=== PATIENT | female | born 1975 | race Two or more races ===

== ENCOUNTER 2017-02-27 14:19 | Emergency (ER) | payer MEDICAID ==
[~2017-02-27] VITALS: Ht 157.5 cm; Wt 108.9 kg
[2017-02-27 15:10] VITALS: BP 126/89
== END 2017-02-27 16:34 | disposition home or self-care (01) ==
LOC: ER 14:38
DX: K14.0 Glossitis (principal); I10 Essential (primary) hypertension

== ENCOUNTER 2019-09-22 23:42 | Emergency (ER) | payer MEDICAID, OTHER ==
[~2019-09-22] VITALS: Ht 167.6 cm; Wt 45.4 kg
[2019-09-23 02:20] LABS: Basophils # (auto) 0.1 10 ^3/uL (0-0.2); Basophils % (auto) 0.6 % (0.0-2.0); Eosinophils # (auto) 0.2 10 ^3/uL (0-0.8); Eosinophils % (auto) 2.1 % (0.0-7.0); Hemoglobin 9.5 g/dL (12.2-16.2); Lymphocytes # (auto) 1.9 10 ^3/uL (0.4-5.4); Mean Corpuscular Hemoglobin 19.8 pg (28.0-32.0); Mean Corpuscular Hgb Conc. 30.6 g/dL (32.0-36.0); Mean Corpuscular Volume 64.5 fL (80.0-100.0); Monocytes # (auto) 0.6 10 ^3/uL (0-1.3); Monocytes % (auto) 6.6 % (0.0-12.0); Neutrophils # (auto) 6.2 10 ^3/uL (1.6-8.6); Neutrophils % (auto) 69.7 % (37.0-80.0); Platelet Count (auto) 330 10^3/uL (140-450); White Blood Cell 8.9 10^3/uL (4.4-10.8)
[2019-09-23 02:21] LABS: Red Cell Distribution Width 22.3 % (11.8-14.3)
[2019-09-23 02:41] LABS: Anion Gap 6 (5-15); Blood Urea Nitrogen 20 mg/dL (7-18); Calcium 8.1 mg/dL (8.5-10.1); Carbon Dioxide 24 mmol/L (21-32); Chloride 110 mmol/L (98-107); Glucose 110 mg/dL (74-106); Magnesium 2.2 mg/dL (1.6-2.6); Potassium 3.9 mmol/L (3.5-5.1); Sodium 140 mmol/L (136-145)
[2019-09-23 02:43] LABS: Alanine Aminotransferase 18 U/L (13-56); Aspartate Aminotransferase 13 U/L (15-37); BUN/Creatinine Ratio 24.1; GFR African American 96 mL/min; GFR Non-African American 79 mL/min
[2019-09-23 02:47] LABS: Alkaline Phosphatase 62 U/L (45-117)
[2019-09-23 02:48] LABS: Bilirubin, Total 0.2 mg/dL (0.2-1.0)
[2019-09-23 05:09] VITALS: BP 140/88
== END 2019-09-23 05:50 | disposition home or self-care (01) ==
LOC: EDBD 23:42 → ER 23:44
DX: R07.89 Other chest pain (principal); D50.9 Iron deficiency anemia, unspecified
CPT/HCPCS: 36415; 71045; 80053; 83735; 83880; 84484; 85025; 93005

== ENCOUNTER 2020-03-22 00:09 | Emergency (ER) | payer OTHER ==
[~2020-03-22] VITALS: Ht 160 cm; Wt 108.9 kg
[2020-03-22 00:27] VITALS: BP 150/85
[2020-03-22] MEDS ORDERED: PANTOPRAZOLE 40 MG TAB PO ONE (00:30)
[2020-03-22] MEDS ORDERED: LORazepam 0.5 MG TAB PO ONE (00:30)
[2020-03-22 01:03] LABS: Eosinophils # (auto) 0.2 10 ^3/uL (0-0.8); Monocytes # (auto) 0.4 10 ^3/uL (0-1.3); Neutrophils # (auto) 3.8 10 ^3/uL (1.6-8.6); Platelet Count (auto) 404 10^3/uL (140-450)
[2020-03-22 01:05] LABS: Basophils # (auto) 0.1 10 ^3/uL (0-0.2); Basophils % (auto) 1.4 % (0.0-2.0); Eosinophils % (auto) 3.1 % (0.0-7.0); Hematocrit 28.5 % (36.0-46.0); Hemoglobin 8.6 g/dL (12.2-16.2); Lymphocytes # (auto) 1.4 10 ^3/uL (0.4-5.4); Lymphocytes % (auto) 23.8 % (10.0-50.0); Mean Corpuscular Hemoglobin 18.7 pg (28.0-32.0); Mean Corpuscular Hgb Conc. 30.3 g/dL (32.0-36.0); Mean Corpuscular Volume 61.6 fL (80.0-100.0); Monocytes % (auto) 6.5 % (0.0-12.0); Neutrophils % (auto) 65.2 % (37.0-80.0); Red Blood Cells 4.63 10^6/uL (4.0-5.20); White Blood Cell 5.8 10^3/uL (4.4-10.8)
[2020-03-22 01:20] LABS: Albumin 3.6 g/dL (3.4-5.0); Anion Gap 6 (5-15); Blood Urea Nitrogen 17 mg/dL (7-18); Calcium 8.8 mg/dL (8.5-10.1); Carbon Dioxide 26 mmol/L (21-32); Chloride 107 mmol/L (98-107); Glucose 101 mg/dL (74-106); Potassium 3.5 mmol/L (3.5-5.1); Sodium 139 mmol/L (136-145)
[2020-03-22 01:21] LABS: INR 1.06 (0.9-1.15); Partial Thromboplastin Time 25.8 sec (23.0-31.2)
[2020-03-22 01:24] LABS: Alanine Aminotransferase 20 U/L (13-56); Alkaline Phosphatase 64 U/L (45-117); Aspartate Aminotransferase 17 U/L (15-37); BUN/Creatinine Ratio 18.9; Bilirubin, Total 0.6 mg/dL (0.2-1.0); GFR African American 87 mL/min; GFR Non-African American 72 mL/min; Total Protein 7.7 g/dL (6.4-8.2)
[2020-03-22 02:39] LABS: Salicylate < 1.7 mg/dL (2.8-20.0)
[2020-03-22 02:42] LABS: Acetaminophen < 2.0 ug/mL (10-30)
== END 2020-03-22 03:03 | disposition home or self-care (01) ==
LOC: ER 00:09
DX: F41.9 Anxiety disorder, unspecified (principal); K29.70 Gastritis, unspecified, without bleeding; D64.9 Anemia, unspecified; R07.89 Other chest pain; Z20.822 Contact with and (suspected) exposure to COVID-19
CPT/HCPCS: 36415; 71045; 80053; 80329; 83735; 83880; 84443; 84484; 85025; 85610; 85730; 87426; 93005

== ENCOUNTER 2020-03-29 22:20 | Emergency (ER) | payer OTHER ==
[~2020-03-29] VITALS: Ht 160 cm; Wt 90.7 kg
[2020-03-30 01:06] LABS: Albumin 3.6 g/dL (3.4-5.0); Anion Gap 6 (5-15); Basophils # (auto) 0.1 10 ^3/uL (0-0.2); Calcium 8.1 mg/dL (8.5-10.1); Carbon Dioxide 26 mmol/L (21-32); Chloride 106 mmol/L (98-107); Eosinophils # (auto) 0.3 10 ^3/uL (0-0.8); Eosinophils % (auto) 3.6 % (0.0-7.0); Glucose 95 mg/dL (74-106); Lymphocytes # (auto) 1.9 10 ^3/uL (0.4-5.4); Monocytes # (auto) 0.5 10 ^3/uL (0-1.3); Neutrophils # (auto) 4.5 10 ^3/uL (1.6-8.6); Potassium 3.9 mmol/L (3.5-5.1); Sodium 138 mmol/L (136-145); White Blood Cell 7.2 10^3/uL (4.4-10.8)
[2020-03-30 01:07] LABS: Basophils % (auto) 0.9 % (0.0-2.0); Hematocrit 28.1 % (36.0-46.0); Hemoglobin 8.6 g/dL (12.2-16.2); Lymphocytes % (auto) 26.3 % (10.0-50.0); Mean Corpuscular Hemoglobin 18.9 pg (28.0-32.0); Mean Corpuscular Hgb Conc. 30.7 g/dL (32.0-36.0); Mean Corpuscular Volume 61.6 fL (80.0-100.0); Monocytes % (auto) 6.7 % (0.0-12.0); Neutrophils % (auto) 62.5 % (37.0-80.0); Platelet Count (auto) 389 10^3/uL (140-450); Red Blood Cells 4.57 10^6/uL (4.0-5.20)
[2020-03-30 01:12] LABS: Alanine Aminotransferase 32 U/L (13-56); Alkaline Phosphatase 71 U/L (45-117); Aspartate Aminotransferase 22 U/L (15-37); BUN/Creatinine Ratio 27.1; Bilirubin, Total 0.4 mg/dL (0.2-1.0); Blood Urea Nitrogen 23 mg/dL (7-18); GFR African American 93 mL/min; GFR Non-African American 77 mL/min; Total Protein 7.3 g/dL (6.4-8.2)
[2020-03-30 03:06] VITALS: BP 130/78
== END 2020-03-30 03:12 | disposition home or self-care (01) ==
LOC: ER 22:20
DX: R07.89 Other chest pain (principal); I10 Essential (primary) hypertension
CPT/HCPCS: 36415; 71045; 80053; 83735; 83880; 84484; 85025; 93005

== ENCOUNTER 2020-04-18 20:36 | Emergency (ER) | payer OTHER ==
[~2020-04-18] VITALS: Ht 160 cm; Wt 104.3 kg
[2020-04-18 20:37] VITALS: BP 129/78
[2020-04-18] MEDS ORDERED: IBUPROFEN 800 MG TAB PO ONE (22:45)
[2020-04-18] MEDS ORDERED: LORazepam 0.5 MG TAB PO ONE (23:30)
== END 2020-04-19 00:55 | disposition home or self-care (01) ==
LOC: ER 20:36
DX: G44.209 Tension-type headache, unspecified, not intractable (principal); E66.9 Obesity, unspecified; F41.9 Anxiety disorder, unspecified; I10 Essential (primary) hypertension; F32.9 Major depressive disorder, single episode, unspecified; Z20.822 Contact with and (suspected) exposure to COVID-19; Z68.41 Body mass index [BMI] 40.0-44.9, adult
CPT/HCPCS: 36415; 87426; 99284; C9803; U0003; 93005

== ENCOUNTER 2020-05-06 19:38 | Emergency (ER) | payer OTHER ==
[~2020-05-06] VITALS: Ht 160 cm; Wt 104.3 kg
[2020-05-06 20:35] VITALS: BP 142/66
[2020-05-07] MEDS ORDERED: IBUPROFEN 800 MG TAB PO ONE (00:15)
[2020-05-07] MEDS ORDERED: cefTRIAXone SOD 1,000 MG VL IM ONE (00:15)
== END 2020-05-07 03:08 | disposition left against medical advice (07) ==
LOC: ER 19:38
DX: N39.0 Urinary tract infection, site not specified (principal); R93.89 Abnormal findings on diagnostic imaging of other specified body structures; N85.4 Malposition of uterus; I10 Essential (primary) hypertension
CPT/HCPCS: 76830; 76856; 81002; 81025; 96372; 99284; J0696

== ENCOUNTER 2020-05-16 03:09 | Emergency (ER) | payer OTHER ==
[~2020-05-16] VITALS: Ht 160 cm; Wt 104.3 kg
[2020-05-16 03:50] LABS: Basophils # (auto) 0.1 10 ^3/uL (0-0.2); Eosinophils # (auto) 0.2 10 ^3/uL (0-0.8); Eosinophils % (auto) 3.4 % (0.0-7.0); Hematocrit 24.2 % (36.0-46.0); Hemoglobin 7.4 g/dL (12.2-16.2); Lymphocytes # (auto) 1.7 10 ^3/uL (0.4-5.4); Lymphocytes % (auto) 27.4 % (10.0-50.0); Mean Corpuscular Hemoglobin 18.7 pg (28.0-32.0); Mean Corpuscular Hgb Conc. 30.4 g/dL (32.0-36.0); Mean Corpuscular Volume 61.5 fL (80.0-100.0); Monocytes # (auto) 0.5 10 ^3/uL (0-1.3); Neutrophils # (auto) 3.6 10 ^3/uL (1.6-8.6); Neutrophils % (auto) 60.2 % (37.0-80.0); Nucleated Red Blood Cells % 0.1 %; Platelet Count (auto) 398 10^3/uL (140-450); Red Blood Cells 3.93 10^6/uL (4.0-5.20); White Blood Cell 6.1 10^3/uL (4.4-10.8)
[2020-05-16 03:52] LABS: Red Cell Distribution Width 22.7 % (11.8-14.3)
[2020-05-16 04:08] LABS: Albumin 3.3 g/dL (3.4-5.0); Anion Gap 8 (5-15); Blood Urea Nitrogen 19 mg/dL (7-18); Calcium 8.3 mg/dL (8.5-10.1); Carbon Dioxide 22 mmol/L (21-32); Chloride 110 mmol/L (98-107); Glucose 96 mg/dL (74-106); Potassium 3.8 mmol/L (3.5-5.1); Sodium 140 mmol/L (136-145)
[2020-05-16 04:13] LABS: Alanine Aminotransferase 16 U/L (13-56); Alkaline Phosphatase 53 U/L (45-117); Aspartate Aminotransferase 12 U/L (15-37); BUN/Creatinine Ratio 22.6; Bilirubin, Total 0.3 mg/dL (0.2-1.0); GFR African American 94 mL/min; GFR Non-African American 78 mL/min; Total Protein 7.1 g/dL (6.4-8.2)
[2020-05-16] MEDS: ASPirin 81 mg TAB PO ONE (07:02)
[2020-05-16] MEDS: FERROUS SULFATE 325 MG TAB PO ONE (07:03)
[2020-05-16 07:17] VITALS: BP 106/66
== END 2020-05-16 08:18 | disposition home or self-care (01) ==
LOC: ER 03:12
DX: D64.9 Anemia, unspecified (principal); K29.70 Gastritis, unspecified, without bleeding; I10 Essential (primary) hypertension; R07.9 Chest pain, unspecified
CPT/HCPCS: 36415; 71045; 80053; 84484; 85025; 93005

== ENCOUNTER 2022-04-06 11:37 | Emergency (ER) | payer MEDICAID, OTHER ==
[~2022-04-06] VITALS: Ht 157.5 cm; Wt 115.9 kg
[2022-04-06 11:45] VITALS: BP 133/89
[2022-04-06 13:12] LABS: Basophils # (auto) 0 10 ^3/uL (0-0.2); Basophils % (auto) 0.4 % (0.0-2.0); Eosinophils # (auto) 0.1 10 ^3/uL (0-0.8); Eosinophils % (auto) 0.8 % (0.0-7.0); Hemoglobin 11.5 g/dL (12.2-16.2); Monocytes # (auto) 0.5 10 ^3/uL (0-1.3); Neutrophils # (auto) 7.6 10 ^3/uL (1.6-8.6); White Blood Cell 9.4 10^3/uL (4.4-10.8)
[2022-04-06 13:13] LABS: Albumin 3.6 g/dL (3.4-5.0); Calcium 8.7 mg/dL (8.5-10.1); Potassium 4.1 mmol/L (3.5-5.1)
[2022-04-06 13:14] LABS: Hematocrit 37.2 % (36.0-46.0); Lymphocytes # (auto) 1.2 10 ^3/uL (0.4-5.4); Lymphocytes % (auto) 12.9 % (10.0-50.0); Mean Corpuscular Hemoglobin 22.2 pg (28.0-32.0); Mean Corpuscular Volume 71.7 fL (80.0-100.0); Monocytes % (auto) 5.4 % (0.0-12.0); Neutrophils % (auto) 80.5 % (37.0-80.0); Nucleated Red Blood Cells % 0.1 %; Red Blood Cells 5.19 10^6/uL (4.0-5.20); Red Cell Distribution Width 20.3 % (11.8-14.3)
[2022-04-06 13:16] LABS: BUN/Creatinine Ratio 19.5; Bilirubin, Total 0.4 mg/dL (0.2-1.0); Total Protein 7.6 g/dL (6.4-8.2)
[2022-04-06 14:46] LABS: Urine Bacteria FEW /hpf (None Seen); Urine Blood 2+ /uL (Negative); Urine WBC 12 /hpf (0 - 5)
[2022-04-06] MEDS ORDERED: ACET-1158 PO (19:01)
[2022-04-06] MEDS ORDERED: NITR-87 PO (19:01)
[2022-04-07] MEDS ORDERED: IBU600T PO (15:43)
== END 2022-04-06 19:40 | disposition left against medical advice (07) ==
LOC: ER 11:37
DX: S00.90XA Unspecified superficial injury of unspecified part of head, initial encounter (principal); F32.9 Major depressive disorder, single episode, unspecified; N39.0 Urinary tract infection, site not specified; R55 Syncope and collapse; F41.9 Anxiety disorder, unspecified; I10 Essential (primary) hypertension; W22.8XXA Striking against or struck by other objects, initial encounter; Y93.89 Activity, other specified; Y92.098 Other place in other non-institutional residence as the place of occurrence of the external cause; Y99.8 Other external cause status
CPT/HCPCS: 36415; 70450; 80053; 81001; 85025

== ENCOUNTER 2022-04-07 13:01 | Emergency (ER) | payer MEDICAID ==
[~2022-04-07] VITALS: Ht 157.5 cm; Wt 115.3 kg
[~2022-04-07 13:01] MED LIST: ACET-1158 PO; NITR-87 PO
[2022-04-07 13:27] VITALS: BP 154/94
[2022-04-07 14:22] LABS: Basophils # (auto) 0 10 ^3/uL (0-0.2); Basophils % (auto) 0.5 % (0.0-2.0); Eosinophils # (auto) 0.2 10 ^3/uL (0-0.8); Eosinophils % (auto) 2.6 % (0.0-7.0); Monocytes # (auto) 0.4 10 ^3/uL (0-1.3)
[2022-04-07 14:24] LABS: Hematocrit 34.8 % (36.0-46.0); Lymphocytes # (auto) 1.5 10 ^3/uL (0.4-5.4); Lymphocytes % (auto) 22.4 % (10.0-50.0); Mean Corpuscular Hemoglobin 22.6 pg (28.0-32.0); Mean Corpuscular Hgb Conc. 31.7 g/dL (32.0-36.0); Mean Corpuscular Volume 71.3 fL (80.0-100.0); Monocytes % (auto) 5.2 % (0.0-12.0); Neutrophils # (auto) 4.8 10 ^3/uL (1.6-8.6); Neutrophils % (auto) 69.3 % (37.0-80.0); Nucleated Red Blood Cells % 0.2 %; Red Blood Cells 4.88 10^6/uL (4.0-5.20); White Blood Cell 6.9 10^3/uL (4.4-10.8)
[2022-04-07 14:30] LABS: Red Cell Distribution Width 20.3 % (11.8-14.3)
[2022-04-07 14:38] LABS: Albumin 3.4 g/dL (3.4-5.0); Calcium 8.9 mg/dL (8.5-10.1); Potassium 4.1 mmol/L (3.5-5.1)
[2022-04-07 14:40] LABS: BUN/Creatinine Ratio 16.7
[2022-04-07 14:42] LABS: Bilirubin, Total 0.4 mg/dL (0.2-1.0); Total Protein 7.1 g/dL (6.4-8.2)
[2022-04-07] MEDS ORDERED: IBU600T PO (15:43)
[2022-04-07] MEDS ORDERED: HYDROcodone-ACET 5/325MG TAB PO ONE (15:45)
== END 2022-04-07 17:52 | disposition home or self-care (01) ==
LOC: ER 13:01
DX: I10 Essential (primary) hypertension (principal); Z86.2 Personal history of diseases of the blood and blood-forming organs and certain disorders involving the immune mechanism; Z79.1 Long term (current) use of non-steroidal anti-inflammatories (NSAID); Z79.899 Other long term (current) drug therapy
CPT/HCPCS: 36415; 70450; 80053; 85025

== ENCOUNTER 2024-12-03 13:24 | Inpatient (IN) | payer MEDICAID ==
[~2024-12-03] VITALS: Ht 154.9 cm; Wt 121.0 kg
[~2024-12-03 13:24] MED LIST changes: -ACET-1158 PO; +ACET500T58 PO; +IBU600T PO
--- NOTE | 2024-12-03 13:46 | ED.PDOC ---
History of Present Illness HPI Comments 49-year-old female brought in by EMS presents with a chief complaint of seizure- activity x 20 minutes again. Patient was at a restaurant and had a seizure that was tonic-clonic according to EMS. Patient take Keppra and states that she has been compliant with her medication. Patient does have oral trauma to her tongue from the seizure. Patient was postictal on scene per EMS and was a little combative. However patient is alert and oriented x 4 at this time. Patients last seizure was 3 months ago. Chief Complaint: Seizure Time Seen by MD: 13:35 Primary Care Provider: ROSEMARY Reviewed Notes: Medications, Allergies Allergies: Coded Allergies: NO KNOWN ALLERGIES (Unverified , 09/07/14) Home Meds Active Scripts Ibuprofen Micronized (MOTRIN TABLET) 600 Mg Tb, 600 MG PO TID PRN for 5 Days, #15 TAB *Black box warning-NSAIDS can increase risk of NH & hypertension, GI irritation, ulceration, bleed, perferation. Do not use post cardiac surgery. Use short duration/lowest effective dose. 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 Past Medical History PAST MEDICAL HISTORY: Anemia, Anxiety, Depression, HTN, Seizures Surgical History: Denies all surgeries HAND I THERMAL CUTTER History: No Pertinent HAND I THERMAL CUTTER History Family History Family History: Reviewed,noncontributory to illness Social History Smoker: Non-Smoker Alcohol: Denies ETOH Use Drugs: Denies Drug Use Lives In: Home Constitutional: denies: chills, diaphoresis, fatigue, fever, malaise, sweats, weakness, others EENTM: denies: blurred vision, double vision, ear bleeding, ear discharge, ear drainage, ear pain, ear ringing, eye pain, eye redness, hearing loss, mouth pain, mouth swelling, nasal discharge, nose bleeding, nose congestion, nose pain, photophobia, tearing, throat pain, throat swelling, voice changes, others Respiratory: denies: cough, hemoptysis, orthopnea, SOB at rest, shortness of breath, SOB with excertion, stridor, wheezing, others Cardiovascular: denies: chest pain, dizzy spells, diaphoresis, Dyspnea on exertion, edema, irregular heart beat, left arm pain, lightheadedness, palpitations, PND, syncope, others Gastrointestinal: denies: abdomen distended, abdominal pain, blood streaked bowels, constipated, diarrhea, dysphagia, difficulty swallowing, hematemesis, melena, nausea, poor appetite, poor fluid intake, rectal bleeding, rectal pain, vomiting, others Genitourinary: denies: abnormal vagina bleeding, burning, dyspareunia, dysuria, flank pain, frequency, hematuria, incontinence, pain, , vagina discharge, urgency, others Neurological: reports: seizure; denies: dizziness, fainting, headache, left sided numbness, left sided weakness, numbness, paresthesia, pre-existing deficit, right sided numbness, right sided weakness, speech problems, tingling, tremors, weakness, others Musculoskeletal: denies: back pain, gout, joint pain, joint swelling, muscle pain, muscle stiffness, neck pain, others Integumetry: denies: bruises, change in color, change in hair/nails, dryness, laceration, lesions, lumps, rash, wounds, others Allergic/Immunocompromised: denies: Difficulty Healing, Frequent Infections, Hives, Itching, others Hematologic/Lymphatic: denies: anemia, blood clots, easy bleeding, easy bruising, swollen glands, others Endocrine: denies: excessive hunger, excessive sweating, excessive thirst, excessive urination, flushing, intolerance to cold, intolerance to heat, unexplained weight gain, unexplained weight loss, others Psychiatric: denies: anxiety, bipolar disorder, depression, hopeless, panic disorder, schizophrenia, sleepless, suicidal, others All Other Systems: Reviewed and Negative Physical Exam General Appearance: Moderate Distress, Normal HEENT: Normal ENT Inspection, Pharynx Normal, TMs Normal Neck: Full Range of Motion, Non-Tender, Normal, Normal Inspection Respiratory: Chest Non-Tender, Lungs Clear, No Accessory Muscle Use, No Respiratory Distress, Normal Breath Sounds Cardiovascular: No Edema, No JVD, No Murmur, No Gallop, Normal Peripheral Pulses, Regular Rate/Rhythm Breast Exam: Deferred Gastrointestinal: No Organomegaly, Non Tender, No Pulsatile Mass, Normal Bowel Sounds, Soft Genitalia: Deferred Pelvic: Deferred Rectal: Deferred Extremities: No calf tenderness, Normal capillary refill, Normal inspection, Normal range of motion, Non-tender, No pedal edema Musculoskeletal : Apperance: Normal 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 Was a procedure done?: No Differential Dx Considerations may include: Seizure disorder Electrolyte imbalance X-Ray, Labs, Meds, VS Vital Signs Date Time Temp Pulse Resp B/P (MAP) Pulse Ox O2 Delivery O2 Flow Rate FiO2 12/03/24 13:37 98.1 110 18 138/75 97 98.1 Postictal. Had a seizure while in a restaurant. She was sitting down. Answering questions. Moving all extremities. She does have a abrasion of the tongue. Last time she had a seizure was three months ago. Establish intravenous access. Was given fluids. Was given Ativan. Explained to the patient. Continue monitoring. Time of 1ST Reevaluation: 14:05 Reevaluation 1ST: Unchanged Patient Education/Counseling: Diagnosis, Treatment, Need For Follow Up Family Education/Counseling: No Family Present SEPSIS Sepsis Screen Physician Orders Complete Blood Count (12/03/24 13:41) Urinalysis (12/03/24 13:41) Basic Metabolic Panel (12/03/24 13:41) Vital Signs Date Time Temp Pulse Resp B/P (MAP) Pulse Ox O2 Delivery O2 Flow Rate FiO2 12/03/24 13:37 98.1 110 18 138/75 97 98.1 Departure 1 Departure Time of Disposition: 13:49 Impression: Primary Impression: Metabolic encephalopathy Additional Impression: Seizure Disposition: 09 ADMITTED INPATIENT Condition: Guarded Discharged With: Self Critical Care Note Critical Care Time?: No Stability Stability form required: No Heart Score Heart Score: Heart Score Response (Comments) Value History N/A 0 EKG N/A 0 Age N/A 0 Risk Factors N/A 0 Troponin N/A 0 Total 0 I personally scribed for JEFF BUTTERFIELD MD ([email or web address]) on 12/03/24 at 13:46. Electronically submitted by Edy Blount ([email or web address]). JEFF BUTTERFIELD MD Dec 03, 2024 13:46
[2024-12-03 14:09] LABS: Hematocrit 42.4 % (36.0-46.0); Hemoglobin 14.1 g/dL (12.2-16.2); Mean Corpuscular Hemoglobin 27.8 pg (28.0-32.0); Mean Corpuscular Volume 83.7 fL (80.0-100.0); Nucleated Red Blood Cells % 0.1 %
[2024-12-03 14:24] LABS: Chloride 103 mmol/L (98-107); Potassium 4.3 mmol/L (3.5-5.1); Sodium 138 mmol/L (136-145)
[2024-12-03 14:25] LABS: Anion Gap 13 (5-15); Carbon Dioxide 22 mmol/L (20-31)
[2024-12-03 14:26] LABS: Calcium 9.2 mg/dL (8.7-10.4)
[2024-12-03 14:31] LABS: BUN/Creatinine Ratio 12.1 (10.0-20.0); Blood Urea Nitrogen 13 mg/dL (9-23)
[2024-12-03 14:34] LABS: Glucose 116 mg/dL (74-106)
[2024-12-03 14:53] VITALS: PULSE 94; RESP 12; O2SAT 97
[2024-12-03 17:49] LABS: Urine Protein, UAD 1+ (Negative)
[2024-12-03] MEDS: LORazepam 2MG/ML-1ML VIAL IV ONE (18:06)
[2024-12-03 19:29] VITALS: PULSE 83; RESP 12; O2SAT 97
[2024-12-03] MEDS ORDERED: LORazepam 2MG/ML-1ML VIAL IV PRN (19:30)
[2024-12-03] MEDS ORDERED: ONDANSETRON HCL 4 MG/2 ML VIAL IV PRN (19:30)
--- NOTE | 2024-12-03 21:34 | DVHHP2 ---
History of Present Illness Reason for Visit: Seizure activity History of Present Illness 49-year-old female presents for evaluation of seizure. Patient presents for evaluation of seizure activity after having a tonic-clonic seizure at a restaurant. Denies oral trauma or head trauma. Patient reports being compliant with her antiseizure medications. Past Medical History Depression, hypertension, seizures Past Surgical History Denies Family History Noncontributory Smoke: No ALCOHOL: none Drugs: None Lives: with Family Review of Systems Review of Systems Review of systems are currently negative otherwise addressed in HPI. Allergies: Coded Allergies: NO KNOWN ALLERGIES (Unverified , 09/07/14) Medications Current Medications Medications Dose Ordered Sig/Chris Route Start Time Stop Time Status Last Admin Dose Admin Sertraline HCl 50 mg DAILY PO 12/04/24 10:00 Levetiracetam 500 mg BID PO 12/03/24 22:00 Lorazepam 1 mg Q5MINP PRN IV 12/03/24 19:30 Ondansetron HCl 4 mg Q4HP PRN IV 12/03/24 19:30 Acetaminophen 650 mg Q6HP PRN PO 12/03/24 19:30 Exam Vital Signs Vital Signs Date Time Temp Pulse Resp B/P (MAP) Pulse Ox O2 Delivery O2 Flow Rate FiO2 12/03/24 21:24 100 12 146/95 (112) 99 12/03/24 19:29 Room Air* 0 21 12/03/24 19:29 98.6 98.6 Exam Gen: 49-year-old female in mild distress, morbidly obese Skin: Warm, dry, normal color and texture, no rash. HEENT: Normocephalic atraumatic, mucous membranes moist and pink. Neck: Cervical and supraclavicular nodes normal without enlargement, trachea is midline, thyroid gland is normal without masses. Pulmonary: Clear to auscultation and percussion bilaterally. Cardiac: Regular rate and rhythm. No murmur Abdomen: Soft, nontender, nondistended, bowel sounds present all 4 quadrants, no guarding, no rigidity, no organomegaly. Extremities: No cyanosis, clubbing, no edema Neuro: Cranial nerves II through XII grossly intact, normal affect and speech, no focal motor deficits. Labs/Xrays Labs Test 12/03/24 17:00 12/03/24 14:01 Range/Units Urine Color Yellow Yellow Urine Clarity Clear Clear Urine pH 5.0 5.0-9.0 Urine Specific [place] 1.017 1.001-1.035 Urine Protein 1+ H Negative Urine Ketones Negative Negative Urine Blood Negative Negative /uL Urine Nitrite Negative Negative Urine Bilirubin Negative Negative Urine Urobilinogen Normal Negative mg/dL Urine Leukocyte Esterase 2+ H Negative /uL Urine Glucose Normal Normal mg/dL White Blood Count 7.0 4.4-10.8 10^3/uL Red Blood Count 5.06 4.0-5.20 10^6/uL Hemoglobin 14.1 12.2-16.2 g/dL Hematocrit 42.4 36.0-46.0 % Mean Corpuscular Volume 83.7 80.0-100.0 fL Mean Corpuscular Hemoglobin 27.8 L 28.0-32.0 pg Mean Corpuscular Hemoglobin Concent 33.2 32.0-36.0 g/dL Red Cell Distribution Width 15.8 H 11.8-14.3 % Platelet Count 245 140-450 10^3/uL Mean Platelet Volume 8.4 6.9-10.8 fL Neutrophils (%) (Auto) 69.8 37.0-80.0 % Lymphocytes (%) (Auto) 23.2 10.0-50.0 % Monocytes (%) (Auto) 4.7 0.0-12.0 % Eosinophils (%) (Auto) 1.6 0.0-7.0 % Basophils (%) (Auto) 0.7 0.0-2.0 % Neutrophils # (Auto) 4.9 1.6-8.6 10 ^3/uL Lymphocytes # (Auto) 1.6 0.4-5.4 10 ^3/uL Monocytes # (Auto) 0.3 0-1.3 10 ^3/uL Eosinophils # (Auto) 0.1 0-0.8 10 ^3/uL Basophils # (Auto) 0 0-0.2 10 ^3/uL Nucleated Red Blood Cells 0.1 % Sodium Level 138 136-145 mmol/L Potassium Level 4.3 3.5-5.1 mmol/L Chloride Level 103 98-107 mmol/L Carbon Dioxide Level 22 20-31 mmol/L Anion Gap 13 5-15 Blood Urea Nitrogen 13 9-23 mg/dL Creatinine 1.07 H 0.550-1.02 mg/dL Glomerular Filtration Rate Calc 63 >90 mL/min BUN/Creatinine Ratio 12.1 10.0-20.0 Serum Glucose 116 H 74-106 mg/dL Calcium Level 9.2 8.7-10.4 mg/dL SEPSIS Sepsis Screen Date sepsis recognized/suspect: Dec 03, 2024 Time Sepsis recognized/suspect: 2020 Recent Procedure: No On Antibiotic Therapy: No Respiratory Rate >20: No Heart Rate >90: No Temp<36 C (96.8 F) or >38.3 C: No SBP <90 or MAP <65 mmHG: No New Acute Mental Status Change: No Is the patient on CPAP, BIPAP,: No Physician Orders Head Without Contrast (12/03/24 19:18) Sertraline Hcl (Zoloft) (12/04/24 10:00) Levetiracetam Tablet (Keppra Tablet) (12/03/24 22:00) Lorazepam 2mg/Ml Inj (Ativan Inj) (12/03/24 19:30) Seizure Precautions In Place (12/03/24 19:18) Basic Metabolic Panel (12/04/24 04:00) Admit (12/03/24 19:18) Ondansetron Hcl (Zofran) (12/03/24 19:30) Cardiac Diet-2gna,Lofat,Lochol (12/04/24 Breakfast) Condition: Stable (12/03/24 19:18) Acetaminophen Tablet (Tylenol Tablet) (12/03/24 19:30) Bedrest With Bathroom Privileg (12/03/24 19:18) Vital Signs Date Time Temp Pulse Resp B/P (MAP) Pulse Ox O2 Delivery O2 Flow Rate FiO2 12/03/24 21:24 100 12 146/95 (112) 99 12/03/24 19:29 83 12 97 Room Air* 0 21 12/03/24 19:29 98.6 83 12 141/106 (118) 97 98.6 12/03/24 18:53 76 13 127/72 (90) 97 12/03/24 16:00 82 12/03/24 14:53 97.6 10 94 124/70 (88) 97 97.6 12/03/24 14:53 94 12 97 Nasal Cannula* 2 28 12/03/24 13:37 98.1 110 18 138/75 97 98.1 Laboratory Tests Test 12/03/24 14:01 White Blood Count 7.0 10^3/uL (4.4-10.8) Medications Medications Dose Ordered Sig/Chris Route Start Time Stop Time Status Last Admin Dose Admin Lorazepam 1 mg ONCE ONCE IV 12/03/24 13:45 12/03/24 13:46 DC 12/03/24 18:06 1 MG Assessment/Plan Assessment/Plan Assessment Breakthrough seizure Hypertension Acute kidney injury Urinary tract infection Plan Admit the patient to [facility] to the hospitalist Nephrology consultation Seizure precautions in place Head CT pending Continue treatment per orders. Plan discussed with: Patient My Orders Orders - MARY MCCLAIN Procedure Category Date Status Time Head Without Contrast CT 12/03/24 Taken 19:18 Sertraline Hcl PHA 12/04/24 In Process (Zoloft) 10:00 Levetiracetam Tablet PHA 12/03/24 In Process (Keppra Tablet) 22:00 Lorazepam 2mg/Ml Inj PHA 12/03/24 In Process (Ativan Inj) 19:30 Seizure Precautions SCOTT 12/03/[address] 19:18 Basic Metabolic Panel LAB 12/04/24 Verified 04:00 Admit ADMIT 12/03/24 Transmitted 19:18 Ondansetron Hcl PHA 12/03/24 In Process (Zofran) 19:30 Cardiac DIET 12/04/24 Transmitted Diet-2gna,Lofat,Lochol Breakfast Condition: Stable SCOTT 12/03/24 In Process 19:18 Acetaminophen Tablet PHA 12/03/24 In Process (Tylenol Tablet) 19:30 Bedrest With Bathroom SCOTT 12/03/24 In Process Privileg 19:18 Date of Service: Dec 03, 2024 Billing Provider: MARY MCCLAIN Common Visit Codes: [id number] INP/OBS CARE (MOD) MARY MCCLAIN Dec 03, 2024 21:34
--- NOTE | 2024-12-03 21:58 | DVH ---
EXAM: CT HEAD WITHOUT CONTRAST INDICATION: seizure TECHNIQUE: CT of the head without intravenous contrast. Radiation Dose Information: CT Dose: CTDI volume is 66.87 mGy. Dose-length product is 1317.59 mGy*cm The dose indicators for CT are the volume Computed Tomography (CT) Dose Index (CTDIvol) and the Dose Length Product (DLP), and are measured in units of mGy and mGy-cm, respectively. These indicators are not patient dose, but values generated from the CT scanner acquisition factors. The report includes radiation exposure data for exposures received during this examination. COMPARISON: CT BRAIN on DOS: 08/14/24, CT BRAIN on DOS: 04/26/24, CT BRAIN on DOS: 03/21/24 FINDINGS: There is no evidence of acute intracranial hemorrhage, extra-axial collection, mass effect, midline s hift, herniation or hydrocephalus. The ventricles, sulci and cisterns are age appropriate. The durham-white differentiation is intact. Patchy periventricular and subcortical white matter hypoattenuation is nonspecific but may be related to small vessel ischemic disease. The visualized paranasal sinuses and mastoid air cells are clear. The surrounding soft tissues and osseous structures are unremarkable. IMPRESSION: 1. Acute intracranial hemorrhage. 2. No CT findings of territorial ischemia. 3. No intracranial mass.
[2024-12-03] MEDS: levETIRAcetam 500 MG TAB PO SCH (22:00)
[2024-12-04] VITALS (8 sets, daily range): BP systolic 113–134; BP diastolic 33–79; PULSE 74–83; RESP 16–18; TEMP 98.4–98.6; O2SAT 0–100
[2024-12-04] MEDS: ACETAMINOPHEN 325 MG TAB PO PRN
[2024-12-04 06:47] LABS: Anion Gap 9 (5-15); Carbon Dioxide 25 mmol/L (20-31); Chloride 105 mmol/L (98-107); Potassium 4.6 mmol/L (3.5-5.1); Sodium 139 mmol/L (136-145)
[2024-12-04 06:48] LABS: Calcium 9.0 mg/dL (8.7-10.4)
[2024-12-04 06:53] LABS: BUN/Creatinine Ratio 10.9 (10.0-20.0); Blood Urea Nitrogen 12 mg/dL (9-23); Glucose 108 mg/dL (74-106)
[2024-12-04] MEDS: SERTRALINE HCL 50 MG TAB PO SCH (10:19)
--- NOTE | 2024-12-04 15:45 | DVHPN2 ---
Subjective Denies any symptoms at this time. Reviewed: Care Plan, H&P, Labs, Medications Changes from previous H/P or p: No Changes General: Per HPI Objective Vitals Vital Signs Date Time Temp Pulse Resp B/P (MAP) Pulse Ox O2 Delivery O2 Flow Rate FiO2 12/04/24 11:00 98.0 82 14 106/58 (74) 99 98.0 12/04/24 07:17 Nasal Cannula* 2 28 General Appearance: Alert, Oriented X3, Cooperative, No acute distress HEENT: Atraumatic, PERRLA Cardiovascular: Normal S1, Normal S2 Abdomen: Normal bowel sounds, Soft, No tenderness Back: Flank Tenderness, Midline Tenderness Musculoskeletal: Normal sensory function, Normal motor function Skin: Dry, Intact Psych/Mental Status: Mental status NL, Mood NL Medications Current Medications Medications Dose Ordered Sig/Chris Route Start Time Stop Time Status Last Admin Dose Admin Sertraline HCl 50 mg DAILY PO 12/04/24 10:00 12/04/24 10:19 50 MG Levetiracetam 500 mg BID PO 12/03/24 22:00 12/04/24 10:19 500 MG Lorazepam 1 mg Q5MINP PRN IV 12/03/24 19:30 Ondansetron HCl 4 mg Q4HP PRN IV 12/03/24 19:30 Acetaminophen 650 mg Q6HP PRN PO 12/03/24 19:30 12/04/24 00:00 650 MG Ceftriaxone Sodium 50 ml @ 100 mls/hr DAILY@2200 IV 12/04/24 22:00 Laboratory Results Laboratory Tests 12/03/24 14:01 12/04/24 06:18 Chemistry Test 12/04/24 06:18 Calcium Level 9.0 mg/dL (8.7-10.4) Urinalysis Test 12/03/24 17:00 Urine Color Yellow (Yellow) Urine Clarity Clear (Clear) Urine pH 5.0 (5.0-9.0) Urine Specific [place] 1.017 (1.001-1.035) Urine Protein 1+ (Negative) H Urine Ketones Negative (Negative) Urine Blood Negative /uL (Negative) Urine Nitrite Negative (Negative) Urine Bilirubin Negative (Negative) Urine Urobilinogen Normal mg/dL (Negative) Urine Leukocyte Esterase 2+ /uL (Negative) H Urine Glucose Normal mg/dL (Normal) Labs and/or images reviewed: Labs reviewed by me, Image(s) reviewed by me Assessment/Plan Assessment/Plan Impression: -breakthrough seizure activity -epilepsy -UTI -depression -obesity Plan: -continue Keppra 500 mg p.o. b.i.d. -continue IV Rocephin -continue antidepressants -reassess for discharge in a.m. if patient is seizure free Total time spent with patient discussing and formulating plan of care: 35 minutes. This medical document was created using an electronic medical record system with [employer] dictation system. Although this document has been carefully reviewed, there may still be some phonetic and typographical errors. These areas are purely typographical due to imperfections of the software programs, and do not reflect any compromise in the patient's medical care. Plan discussed with: Patient, Other (Rn) Date of Service: Dec 04, 2024 Billing Provider: CRISTIANO GERMAN NP Common Visit Codes: [id number] INP/OBS CARE(HIGH) CRISTIANO GERMAN NP Dec 04, 2024 15:45
[2024-12-04] MEDS ORDERED: SERT-289 PO (18:40)
[2024-12-04] MEDS ORDERED: ARIP20TA49 PO (18:40)
[2024-12-04] MEDS ORDERED: LEVE500T3 PO (18:40)
[2024-12-05] VITALS (7 sets, daily range): BP systolic 103–131; BP diastolic 59–94; PULSE 77–95; RESP 18–20; TEMP 97.8–98.7; O2SAT 0–99
--- NOTE | 2024-12-05 12:29 | DVHDS2 ---
Discharge Summary Date of Admission Dec 03, 2024 at 19:18 Date of Discharge: Dec 05, 2024 Admitting Diagnosis Breakthrough seizures Labs/Diagnostic Data: Laboratory Results Test 12/04/24 06:18 12/03/24 17:00 12/03/24 14:01 Sodium Level 139 mmol/L (136-145) Potassium Level 4.6 mmol/L (3.5-5.1) Chloride Level 105 mmol/L (98-107) Carbon Dioxide Level 25 mmol/L (20-31) Anion Gap 9 (5-15) Blood Urea Nitrogen 12 mg/dL (9-23) Creatinine 1.10 mg/dL (0.550-1.02) Glomerular Filtration Rate Calc 61 mL/min (>90) BUN/Creatinine Ratio 10.9 (10.0-20.0) Serum Glucose 108 mg/dL (74-106) Calcium Level 9.0 mg/dL (8.7-10.4) Urine Color Yellow (Yellow) Urine Clarity Clear (Clear) Urine pH 5.0 (5.0-9.0) Urine Specific [place] 1.017 (1.001-1.035) Urine Protein 1+ (Negative) Urine Ketones Negative (Negative) Urine Blood Negative /uL (Negative) Urine Nitrite Negative (Negative) Urine Bilirubin Negative (Negative) Urine Urobilinogen Normal mg/dL (Negative) Urine Leukocyte Esterase 2+ /uL (Negative) Urine Glucose Normal mg/dL (Normal) White Blood Count 7.0 10^3/uL (4.4-10.8) Red Blood Count 5.06 10^6/uL (4.0-5.20) Hemoglobin 14.1 g/dL (12.2-16.2) Hematocrit 42.4 % (36.0-46.0) Mean Corpuscular Volume 83.7 fL (80.0-100.0) Mean Corpuscular Hemoglobin 27.8 pg (28.0-32.0) Mean Corpuscular Hemoglobin Concent 33.2 g/dL (32.0-36.0) Red Cell Distribution Width 15.8 % (11.8-14.3) Platelet Count 245 10^3/uL (140-450) Mean Platelet Volume 8.4 fL (6.9-10.8) Neutrophils (%) (Auto) 69.8 % (37.0-80.0) Lymphocytes (%) (Auto) 23.2 % (10.0-50.0) Monocytes (%) (Auto) 4.7 % (0.0-12.0) Eosinophils (%) (Auto) 1.6 % (0.0-7.0) Basophils (%) (Auto) 0.7 % (0.0-2.0) Neutrophils # (Auto) 4.9 10 ^3/uL (1.6-8.6) Lymphocytes # (Auto) 1.6 10 ^3/uL (0.4-5.4) Monocytes # (Auto) 0.3 10 ^3/uL (0-1.3) Eosinophils # (Auto) 0.1 10 ^3/uL (0-0.8) Basophils # (Auto) 0 10 ^3/uL (0-0.2) Nucleated Red Blood Cells 0.1 % Other Laboratory Tests 12/04/24 06:18 12/03/24 14:01 Brief Hx & Hospital Course: History of Present Illness 49-year-old female presents for evaluation of seizure. Patient presents for evaluation of seizure activity after having a tonic-clonic seizure at a restaurant. Denies oral trauma or head trauma. Patient reports being compliant with her antiseizure medications. Course of hospitalization: Patient has been seizure-free greater than 24 hours. UA noted to have mild UTI, for which patient received IV Rocephin. Patient was continued on home antiepileptics, Keppra 500 mg p.o. twice a day, as well as her home antidepressants. Patient was instructed to follow up with her PCP in 1-2 weeks. All questions answered. Physical examination General: Alert and Oriented x3. No acute distress. Well-nourished. Eyes: EOMI. Anicteric. HENT: Moist mucous membranes. Lungs: Clear to auscultation bilaterally. No accessory muscle use. Cardiovascular: Regular rate and rhythm. No murmur. No JVD. Abdomen: Soft, non-tender and non-distended. No palpable masses. Extremities: No edema. Non-tender. Skin: No rashes or lesions. Warm. Neurologic: No focal neurological deficits. CN II-XII grossly intact, but not individually tested. Psychiatric: Cooperative. Appropriate mood and affect. Total time spent with patient discussing and formulating plan of care: 35 minutes. This medical document was created using an electronic medical record system with [employer] dictation system. Although this document has been carefully reviewed, there may still be some phonetic and typographical errors. These areas are purely typographical due to imperfections of the software programs, and do not reflect any compromise in the patient's medical care. Condition at Discharge: Fair Final Diagnosis/Problems List Breakthrough seizures -epilepsy -UTI -depression -obesity Discharge Disposition: Home Discharge Instruct/Medications Diet: Regular Activity: No Restrictions, As Tolerated Follow Up/Referral: PCP in 1-2 weeks Medications: Continue all previous home medications Scheduled Aripiprazole (Aripiprazole), 1 TAB PO DAILY, (Reported) Levetiracetam (Levetiracetam), 1 TAB PO BID, (Reported) Nitrofurantoin Monohydrate Mac (Macrobid), 100 MG PO BID Sertraline HCl (Sertraline HCl), 1 TAB PO DAILY, (Reported) Scheduled PRN Acetaminophen (Acetaminophen), 500 MG PO Q4HP PRN Ibuprofen Micronized (Motrin Tablet), 600 MG PO TID PRN 36 Discharge Statement: "Patient was advised to return to the ER or call 911 if any headaches, dizziness, shortness of breath, chest pain, abdominal pain, bleeding, fevers, or worsening of medical condition. Patient was counseled about treatment plan, medications, possible side effects, patientverbalized understanding. All questions were answered to the best of my ability. This discharge took greater then 30 minutes in planning, reviewing documentation, counseling the patient, and discussing with other team members." ASSESSMENT ASSESSMENT Assessment Breakthrough seizures Date of Service: Dec 05, 2024 Billing Provider: CRISTIANO GERMAN NP Common Visit Codes: [id number] DISCH DAY >30min CRISTIANO GERMAN NP Dec 05, 2024 12:29
== END 2024-12-05 18:45 | disposition home or self-care (01) | DRG 101 ==
LOC: EDBD 13:24 → ER 13:24 → OVERFLOW 19:18 → WEST WING 12-04 18:07
PROVIDERS: ADMIT Nurse Practitioner Acute Care; ATTEND Nurse Practitioner Acute Care
DX: G40.409 Other generalized epilepsy and epileptic syndromes, not intractable, without status epilepticus (principal); N39.0 Urinary tract infection, site not specified; N17.9 Acute kidney failure, unspecified; Z68.43 Body mass index [BMI] 50.0-59.9, adult; I10 Essential (primary) hypertension; F32.A Depression, unspecified; F41.9 Anxiety disorder, unspecified; E66.9 Obesity, unspecified; Z79.899 Other long term (current) drug therapy
CPT/HCPCS: 36415; 70450; 80048; 81003; 85025; 96365; 96367; G0378